=== PATIENT | female | born 1960 | race Caucasian/White ===

== ENCOUNTER → 2022-12-29 | Day surgery (SDC) | payer MEDICARE ==
[2022-12-24 14:01] VITALS: BP 120/43
[2022-12-29] VITALS (7 sets, daily range): BP systolic 106–133; BP diastolic 49–86
[~2022-12-29] VITALS: Ht 154.9 cm; Wt 51.3 kg
[~2022-12-29] MED LIST: ATIVAN1 MG PO; CELEXA40 MG PO; DOXYCYCLINE HY100 M3 PO; ELDERBERRY350 MG PO; TRAMADOL HCL50 MG PO; VITAMIN D250 MCG PO; XARELTO10 MG PO; ZINC10 M4 PO
[2022-12-30 17:06] LABS: ACID FAST SPEC PROCESSING Tissue Grinding (.)
[2022-12-30 17:06] LABS: ACID FAST SPEC PROCESSING Tissue Grinding (.)
[2022-12-30 17:06] LABS: ACID FAST SPEC PROCESSING Tissue Grinding (.)
== END | disposition home or self-care (01) ==
LOC: SDC 12-24 14:00
PROVIDERS: ATTEND Podiatrist
DX: S86.112A Strain of other muscle(s) and tendon(s) of posterior muscle group at lower leg level, left leg, initial encounter (principal); M76.822 Posterior tibial tendinitis, left leg; M89.8X7 Other specified disorders of bone, ankle and foot; F41.9 Anxiety disorder, unspecified; F32.A Depression, unspecified; F43.10 Post-traumatic stress disorder, unspecified; X58.XXXA Exposure to other specified factors, initial encounter; Y93.89 Activity, other specified; Y92.89 Other specified places as the place of occurrence of the external cause; Y99.8 Other external cause status